=== PATIENT | female | born 1945 | race Caucasian/White ===

== ENCOUNTER → 2021-10-15 | Outpatient (CLI) | payer MEDICARE ==
--- NOTE | 2021-10-16 22:27 | MR ---
EXAMINATION TYPE: MR Prostate wo/w con DATE OF EXAM: 10/15/2021 8:46 AM COMPARISON: None. CLINICAL INDICATION:Female, 76 years old with history of R97.20 ELEVATED PSA; TECHNIQUE: Multi-planar, multi-sequence imaging of the pelvis is performed prior to and following the uncomplicated administration of bolus intravenous gadolinium. CONTRAST: 8.5 Gadavist Interpretive Criteria: PI-RADS v2.1 SERUM PSA: 4.97 on 02/21/2021 SURGICAL PATHOLOGY: No data available. FINDINGS: Prostatic dimensions: 5.5 x 4.7 x 5.5 cm. Prostatic volume: 77.44 mL. Ellipsoid volume PSA density: 0.07 ng/mL/mL. CENTRAL GLAND (Central and Transition Zones/CZ+TZ): Multiple bilateral, heterogenous appearing hypertrophic stromal nodules, without suspicious lesion. M edian lobe hypertrophy with protrusion into the base of the bladder. (PI-RADS 2) PERIPHERAL ZONE (PZ): Bilateral linear, indistinct wedgelike areas of low ADC, and low T2 signal, No evidence of masslike a bnormality, or localized perfusional hypervascularity, to further suggest a focus of clinically signi ficant prostate cancer. (PI-RADS 2) SEMINAL VESICLES (SV): Symmetric and unremarkable. PERIPROSTATIC TISSUES: Unremarkable. LYMPH NODES: No enlarged pelvic lymph node. REMAINING PELVIS: Bladder wall is within normal limits given distention. No abnormal free or organized intrapelvic fluid collection. No pathologic bowel dilation or mural thickening. OSSEOUS STRUCTURES: No suspicious osseous abnormality. Total right hip arthroplasty changes. IMPRESSION: 1. No specific MRI features for high-risk prostate cancer. There are numerous circumscribed transitio n zone nodules and low-risk peripheral zone abnormalities (PI-RADS 2). 2. Moderate BPH, estimated gland volume 74 mL. 3. No suspicious osseous lesion. No lymphadenopathy.
== END | disposition home or self-care (01) ==
LOC: RADMRIMAIN 07:41
PROVIDERS: ATTEND Urology
DX: E04.2 Nontoxic multinodular goiter (principal)
CPT/HCPCS: 72197; A9585

== ENCOUNTER → 2024-01-07 | Outpatient (CLI) | payer MEDICARE ==
--- NOTE | 2024-01-08 10:08 | MR ---
EXAMINATION TYPE: MR Prostate wo/w con DATE OF EXAM: 01/07/2024 8:32 AM COMPARISON: 10/15/2021 CLINICAL INDICATION: Male, 78 years old with history of R97.20 ELEVATED PSA; HIGH PSA/ PREV MR ON PAC S TECHNIQUE: Multi-planar, multi-sequence imaging of the pelvis is performed prior to and following the uncomplicated administration of bolus intravenous gadolinium. CONTRAST: 8.5ML Gadobutrol Interpretive Criteria: PI-RADS v2.1 SERUM PSA: 12/15/23 PSA 12.4 08/2023 PSA 9.430 SURGICAL PATHOLOGY: No data available. FINDINGS: Prostatic dimensions: 5.6 x 6.6 x 4.8 cm. Ellipsoid Volume:92.89 (PSA density=0.13 ng/mL/mL) CENTRAL GLAND (Central and Transition Zones/CZ+TZ): Multiple bilateral, heterogenous appearing hypertrophic stromal nodules, without suspicious lesion. M edian lobe hypertrophy with protrusion into the base of the bladder. (PI-RADS 2) PERIPHERAL ZONE (PZ): Bilateral linear, indistinct wedgelike areas of low ADC, and low T2 signal, No evidence of masslike a bnormality, or localized perfusional hypervascularity, to further suggest a focus of clinically signi ficant prostate cancer. (PI-RADS 2) SEMINAL VESICLES (SV): Symmetric and unremarkable. PERIPROSTATIC TISSUES: Unremarkable. LYMPH NODES: No enlarged pelvic lymph node. REMAINING PELVIS: Trabeculated bladder wall likely secondary to chronic bladder outlet obstruction. No abnormal free or organized intrapelvic fluid collection. No pathologic bowel dilation or mural thickening. Left fat-containing inguinal hernia. OSSEOUS STRUCTURES: No suspicious osseous abnormality. Total right hip arthroplasty changes. IMPRESSION: 1. No specific MRI features for high-risk prostate cancer. PI-RADS 2). 2. Moderate BPH, estimated gland volume 92 mL. 3. No suspicious osseous lesion. No lymphadenopathy. [facility], , 01/08/2024 10:06 AM
== END | disposition home or self-care (01) ==
LOC: EDSEX 06:20 → RADMRIMAIN 06:20
PROVIDERS: ATTEND Urology
DX: N40.0 Benign prostatic hyperplasia without lower urinary tract symptoms (principal); R97.20 Elevated prostate specific antigen [PSA]
CPT/HCPCS: 72197; A9585